=== PATIENT | male | born 1945 | race American Indian/Alaskan Native ===

== ENCOUNTER 2018-08-09 22:35 | Emergency (ER) | payer MEDICARE ==
[2018-08-09] MEDS ORDERED: SODIUM BICARBONATE IV ONE (23:00)
[2018-08-09] MEDS ORDERED: ADRENALIN ONE (23:00)
[2018-08-09] MEDS ORDERED: CALCIUM CHLORIDE IV ONE (23:00)
[2018-08-09] MEDS ORDERED: NACL 0.9% 1000 ML 1,000 ML ONE (23:03)
[2018-08-09] MEDS ORDERED: NACL 0.9% 1000 ML 1,000 ML IV ONE (23:07)
[2018-08-09] MEDS ORDERED: CORDARONE IV ONE (23:09)
[2018-08-09 23:39] LABS: Hematocrit 37.2 % (35.5-45.6); Hemoglobin 12.4 gm/dl (11.8-15.2); Mean Corpuscular HGB Conc 33 % (32-34); Mean Corpuscular Hemoglobin 31 pg (28-32); Mean Corpuscular Volume 93 fl (84-94); Platelet Count 173 K/mm3 (140-440); Red Cell Distribution Width 14.7 % (13.2-15.2)
[2018-08-09] MEDS ORDERED: CORDARONE 900 MG in D5W 482 ML IV SCH (23:45)
[2018-08-09 23:50] LABS: INR 1.75 (0.87-1.13); Partial Thromboplastin Time 32.5 Sec. (24.2-36.6)
[2018-08-09 23:58] LABS: Albumin 2.8 g/dL (3.9-5); BUN/Creatinine Ratio 21; Blood Urea Nitrogen 32 mg/dL (9-20); Creatine Kinase MB 6.4 ng/mL (0.0-4.0); Hemolysis Index 92
[2018-08-10 00:06] LABS: Calcium > 13.0 mg/dL (8.4-10.2)
[2018-08-10 00:10] LABS: Alanine Aminotransferase 159 units/L (7-56)
[2018-08-10] MEDS ORDERED: D50W (25GM) Syringe IV ONE ×4 (00:10→02:08)
[2018-08-10] MEDS ORDERED: PROVENTIL IH ONE (00:11)
[2018-08-10] MEDS ORDERED: LEVOPHED DRIP 4 MG/NS 250 ML 4 MG/250 ML BAG IV ONE (00:16)
[2018-08-10] MEDS ORDERED: NACL 0.9% 1000 ML 1,000 ML IV ONE ×2 (00:21→02:08)
[2018-08-10] MEDS ORDERED: LEVOPHED DRIP 4 MG/NS 250 ML 4 MG/250 ML BAG IV SCH (00:30)
--- NOTE | 2018-08-10 00:41 | XRay Report ---
FINAL REPORT EXAM: XR CHEST 1V AP HISTORY: post intubation, post arrest TECHNIQUE: A portable view of the chest was submitted. FINDINGS: There is approximately a 10 percent right-sided pneumothorax. The lungs otherwise do not show infiltrates or effusions. The heart size is normal. There is a right-sided subclavian venous line with the tip in good position in the mid superior vena cava. The ET tube is 3 cm above the chelsey. The tip of the NG tube is in the upper stomach just below the GE junction. It needs to be advanced 10 cm for optimal positioning. Heart size is normal. The skeletal structures otherwise do not show any acute changes. IMPRESSION: 10 percent right-sided pneumothorax. Satisfactory position of the ET tube and subclavian venous line. The NG tube needs to be advanced 10 cm further into the stomach. No localized infiltrates or congestion.
[2018-08-10] MEDS ORDERED: SODIUM BICARBONATE IV ONE (00:45)
[2018-08-10 00:54] LABS: Band Neutrophils # (Manual) 1.5 K/mm3; Basophils % (Manual) 0 % (0.0-1.8); Eosinophils % (Manual) 0 % (0.0-4.3); Myelocytes # (Manual) 0.2 K/mm3; Total Cells Counted 100
[2018-08-10 00:55] LABS: Anisocytosis 1+; Platelet Estimate Consistent w Auto
[2018-08-10] MEDS ORDERED: SODIUM BICARBONATE 50 MEQ in NACL 0.9% 1000 ML 1,000 ML IV SCH (01:00)
[2018-08-10 01:46] LABS: Alanine Aminotransferase 318 units/L (7-56); Albumin 1.5 g/dL (3.9-5); BUN/Creatinine Ratio 22; Blood Urea Nitrogen 28 mg/dL (9-20); Calcium 9.5 mg/dL (8.4-10.2); Hemolysis Index 33
[2018-08-10] MEDS ORDERED: Vasostrict 20 UNIT in NACL 0.9% 100 ML IV SCH (02:00)
[2018-08-10] MEDS ORDERED: CALCIUM CHLORIDE IVP ONE (02:07)
[2018-08-10] MEDS ORDERED: HumuLIN R IV ONE (02:08)
[2018-08-10] MEDS ORDERED: CALCIUM CHLORIDE 1,000 MG in NACL 0.9% 100 ML IV ONE (02:15)
--- NOTE | 2018-08-10 02:19 | Emergency Department Report ---
ED CPR HPI - General Chief Complaint: Cardiac Arrest/CPR Stated Complaint: CARDIAC ARREST Time Seen by Provider: 08/09/18 23:04 Source: EMS Mode of arrival: Stretcher Limitations: Altered Mental Status - History of Present Illness Initial Comments: 72-year-old male with a past medical history CAD with stent CHF, hypertension and recent diagnosis of stomach cancer about the 5 days ago since the hospital cardiac arrest. Family states that patient stop responding and passed out. They initiated chest compressions. Upon EMS arrival patient was gesturing to stop chest compressions and was in a sinus rhythm. Shortly after their arrival patient's rhythm deteriorated to PEA. Patient was intubated and received epinephrine and route to the hospital and presents in PEA cardiac arrest. - Related Data Allergies Allergy/AdvReac Type Severity Reaction Status Date / Time No Known Allergies Allergy Verified 08/09/18 23:08 ED Review of Systems ROS: Stated complaint: CARDIAC ARREST Other details as noted in HPI Comment: Unobtainable due to pts medical conditions ED Past Medical Hx - Past Medical History Previous Medical History?: Yes Hx Hypertension: Yes Hx of Cancer: Yes (recent stomach cancer diagnosed) - Social History Smoking Status: Unknown if ever smoked ED Physical Exam - General Limitations: Other - Other Other exam information: General: Unresponsive Head exam: Atraumatic Eyes exam: Pupils fixed and dilated ENT: Orally intubated Neck exam: Normal inspection Respiratory exam:No spontaneous respirations, equal bilateral breath sounds with bagging. No breath sounds over the epigastrium Cardiovascular: Pulseless initially Abdomen: Firm/tense abdomen Rectal: Black stool guaiac positive Extremity: No spontaneous movement Back: Normal Inspection Neurologic: GCS equals 3 Skin: Warm, dry, intact ED Course Vital Signs 08/09/18 23:20 Pulse Rate 93 H O2 Sat by Pulse 97 Oximetry - Consultations Consultation #1: 08/09/18 23:03 Case discussed with on-call ice cream freezer DR Perez. EKG reviewed. Not a candidate for cardiac catheterization technologist. Questionable anticoagulate candidate heparin depending on H&H given guaiac positive stools. Recommended amiodarone bolus with drip. - Central Line Placement Right IJ Consent Obtained: emergent situation Time Out Performed: Yes Patient Placed on Monitor/Pulse Ox: Yes MD Prep: mask, gown, gloves Local Anesthesia Used: Lidocaine 1% Amount of Anesthesia Used (mls): 3 Ultrasound Used for Placement: Yes Central Line Lumen Inserted: triple Bloods Obtained for Lab: Yes Central Line Position: good blood return, sutured in place with nyl Post Procedure X-Ray: pneumothorax seen Patient Tolerated Procedure: other Complications: pneumothorax - Chest Tube Chest Tube Location: anterior axillary line Size of Korean Tube (cm): 10 (10.2 welsh) Chest Tube Procedure: betadine prep, sterile drapes applied Velázquez of Air [place]: Yes Number of Attempts: 1 Time of Successful Intubation: 01:30 Tube Sutured to Skin: Yes Post Procedure CXR?: Yes (good position, resolution of pneumothorax) Progress: Resolution of pneumothorax ED Medical Decision Making - Lab Data Result diagrams: 08/09/18 23:30 08/10/18 02:18 Lab Results 08/09/18 08/09/18 08/09/18 Range/Units 23:30 23:30 23:30 WBC 9.5 (4.5-11.0) K/mm3 RBC 4.00 (3.65-5.03) M/mm3 Hgb 12.4 (11.8-15.2) gm/dl Hct 37.2 (35.5-45.6) % MCV 93 (84-94) fl MCH 31 (28-32) pg MCHC 33 (32-34) % RDW 14.7 (13.2-15.2) % Plt Count 173 (140-440) K/mm3 Add Manual Diff Complete Total Counted 100 Seg Neuts % (Manual) 51.0 (40.0-70.0) % Band Neutrophils % 16.0 % Lymphocytes % (Manual) 25.0 (13.4-35.0) % Reactive Lymphs % (Man) 0 % Monocytes % (Manual) 6.0 (0.0-7.3) % Eosinophils % (Manual) 0 (0.0-4.3) % Basophils % (Manual) 0 (0.0-1.8) % Metamyelocytes % 0 % Myelocytes % 2.0 % Promyelocytes % 0 % Blast Cells % 0 % Nucleated RBC % Not Reportable Seg Neutrophils # Man 4.8 (1.8-7.7) K/mm3 Band Neutrophils # 1.5 K/mm3 Lymphocytes # (Manual) 2.4 (1.2-5.4) K/mm3 Abs React Lymphs (Man) 0.0 K/mm3 Monocytes # (Manual) 0.6 (0.0-0.8) K/mm3 Eosinophils # (Manual) 0.0 (0.0-0.4) K/mm3 Basophils # (Manual) 0.0 (0.0-0.1) K/mm3 Metamyelocytes # 0.0 K/mm3 Myelocytes # 0.2 K/mm3 Promyelocytes # 0.0 K/mm3 Blast Cells # 0.0 K/mm3 WBC Morphology Not Reportable Hypersegmented Neuts Not Reportable Hyposegmented Neuts Not Reportable Hypogranular Neuts Not Reportable Smudge Cells Not Reportable Toxic Granulation Not Reportable Toxic Vacuolation Not Reportable Dohle Bodies Not Reportable Pelger-Huet Anomaly Not Reportable Brandon Rods Not Reportable Platelet Estimate Consistent w auto Clumped Platelets Not Reportable Plt Clumps, EDTA Not Reportable Large Platelets Not Reportable Giant Platelets Not Reportable Platelet Satelliting Not Reportable Plt Morphology Comment Not Reportable RBC Morphology Not Reportable Dimorphic RBCs Not Reportable Polychromasia Not Reportable Hypochromasia Not Reportable Poikilocytosis Not Reportable Anisocytosis 1+ Microcytosis Not Reportable Macrocytosis Not Reportable Spherocytes Not Reportable Pappenheimer Bodies Not Reportable Sickle Cells Not Reportable Target Cells Not Reportable Tear Drop Cells Not Reportable Ovalocytes Not Reportable Helmet Cells Not Reportable Duarte-Soldotna Bodies Not Reportable [place] Rings Not Reportable Ripley Cells Not Reportable Bite Cells Not Reportable Crenated Cell Not Reportable Elliptocytes Not Reportable Acanthocytes (Spur) Not Reportable Rouleaux Not Reportable Hemoglobin C Crystals Not Reportable Schistocytes Not Reportable Malaria parasites Not Reportable Carlin Bodies Not Reportable Hem Pathologist Commnt No PT (12.2-14.9) Sec. INR (0.87-1.13) APTT (24.2-36.6) Sec. POC ABG pH (7.35-7.45) POC ABG pCO2 (35-45) POC ABG pO2 (80-105) POC ABG HCO3 POC ABG Total CO2 POC ABG O2 Sat POC ABG Base Excess FiO2 % Sodium 139 (137-145) mmol/L Potassium 6.4 H* (3.6-5.0) mmol/L Chloride 91.9 L (98-107) mmol/L Carbon Dioxide 14 L (22-30) mmol/L Anion Gap 39 mmol/L BUN 32 H (9-20) mg/dL Creatinine 1.5 (0.8-1.5) mg/dL Estimated GFR 56 ml/min BUN/Creatinine Ratio 21 % Glucose 34 L* (75-100) mg/dL POC Glucose (70-105) Lactic Acid 19.50 H* (0.7-2.0) mmol/L Calcium > 13.0 H* (8.4-10.2) mg/dL Total Bilirubin 1.30 H (0.1-1.2) mg/dL AST 230 H (5-40) units/L ALT 159 H (7-56) units/L Alkaline Phosphatase 120 (35-129) units/L Total Creatine Kinase 362 H (55-170) units/L CK-MB (CK-2) 6.4 H (0.0-4.0) ng/mL CK-MB (CK-2) Rel Index 1.7 (0-4) Troponin T 0.080 H (0.00-0.029) ng/mL Total Protein 5.3 L (6.3-8.2) g/dL Albumin 2.8 L (3.9-5) g/dL Albumin/Globulin Ratio 1.1 % Blood Type Antibody Screen 08/09/18 08/09/18 08/10/18 Range/Units 23:30 23:30 00:11 WBC (4.5-11.0) K/mm3 RBC (3.65-5.03) M/mm3 Hgb (11.8-15.2) gm/dl Hct (35.5-45.6) % MCV (84-94) fl MCH (28-32) pg MCHC (32-34) % RDW (13.2-15.2) % Plt Count (140-440) K/mm3 Add Manual Diff Total Counted Seg Neuts % (Manual) (40.0-70.0) % Band Neutrophils % % Lymphocytes % (Manual) (13.4-35.0) % Reactive Lymphs % (Man) % Monocytes % (Manual) (0.0-7.3) % Eosinophils % (Manual) (0.0-4.3) % Basophils % (Manual) (0.0-1.8) % Metamyelocytes % % Myelocytes % % Promyelocytes % % Blast Cells % % Nucleated RBC % Seg Neutrophils # Man (1.8-7.7) K/mm3 Band Neutrophils # K/mm3 Lymphocytes # (Manual) (1.2-5.4) K/mm3 Abs React Lymphs (Man) K/mm3 Monocytes # (Manual) (0.0-0.8) K/mm3 Eosinophils # (Manual) (0.0-0.4) K/mm3 Basophils # (Manual) (0.0-0.1) K/mm3 Metamyelocytes # K/mm3 Myelocytes # K/mm3 Promyelocytes # K/mm3 Blast Cells # K/mm3 WBC Morphology Hypersegmented Neuts Hyposegmented Neuts Hypogranular Neuts Smudge Cells Toxic Granulation Toxic Vacuolation Dohle Bodies Pelger-Huet Anomaly Brandon Rods Platelet Estimate Clumped Platelets Plt Clumps, EDTA Large Platelets Giant Platelets Platelet Satelliting Plt Morphology Comment RBC Morphology Dimorphic RBCs Polychromasia Hypochromasia Poikilocytosis Anisocytosis Microcytosis Macrocytosis Spherocytes Pappenheimer Bodies Sickle Cells Target Cells Tear Drop Cells Ovalocytes Helmet Cells Duarte-Soldot[place] Bodies [place] Rings Ripley Cells Bite Cells Crenated Cell Elliptocytes Acanthocytes (Spur) Rouleaux Hemoglobin C Crystals Schistocytes Malaria parasites Carlin Bodies Hem Pathologist Commnt PT 21.5 H (12.2-14.9) Sec. INR 1.75 H (0.87-1.13) APTT 32.5 (24.2-36.6) Sec. POC ABG pH (7.35-7.45) POC ABG pCO2 (35-45) POC ABG pO2 (80-105) POC ABG HCO3 POC ABG Total CO2 POC ABG O2 Sat POC ABG Base Excess FiO2 % Sodium (137-145) mmol/L Potassium (3.6-5.0) mmol/L Chloride (98-107) mmol/L Carbon Dioxide (22-30) mmol/L Anion Gap mmol/L BUN (9-20) mg/dL Creatinine (0.8-1.5) mg/dL Estimated GFR ml/min BUN/Creatinine Ratio % Glucose (75-100) mg/dL POC Glucose 40 L (70-105) Lactic Acid (0.7-2.0) mmol/L Calcium (8.4-10.2) mg/dL Total Bilirubin (0.1-1.2) mg/dL AST (5-40) units/L ALT (7-56) units/L Alkaline Phosphatase (35-129) units/L Total Creatine Kinase (55-170) units/L CK-MB (CK-2) (0.0-4.0) ng/mL CK-MB (CK-2) Rel Index (0-4) Troponin T (0.00-0.029) ng/mL Total Protein (6.3-8.2) g/dL Albumin (3.9-5) g/dL Albumin/Globulin Ratio % Blood Type O POSITIVE Antibody Screen Negative 08/10/18 08/10/18 08/10/18 Range/Units 00:36 00:36 01:19 WBC (4.5-11.0) K/mm3 RBC (3.65-5.03) M/mm3 Hgb (11.8-15.2) gm/dl Hct (35.5-45.6) % MCV (84-94) fl MCH (28-32) pg MCHC (32-34) % RDW (13.2-15.2) % Plt Count (140-440) K/mm3 Add Manual Diff Total Counted Seg Neuts % (Manual) (40.0-70.0) % Band Neutrophils % % Lymphocytes % (Manual) (13.4-35.0) % Reactive Lymphs % (Man) % Monocytes % (Manual) (0.0-7.3) % Eosinophils % (Manual) (0.0-4.3) % Basophils % (Manual) (0.0-1.8) % Metamyelocytes % % Myelocytes % % Promyelocytes % % Blast Cells % % Nucleated RBC % Seg Neutrophils # Man (1.8-7.7) K/mm3 Band Neutrophils # K/mm3 Lymphocytes # (Manual) (1.2-5.4) K/mm3 Abs React Lymphs (Man) K/mm3 Monocytes # (Manual) (0.0-0.8) K/mm3 Eosinophils # (Manual) (0.0-0.4) K/mm3 Basophils # (Manual) (0.0-0.1) K/mm3 Metamyelocytes # K/mm3 Myelocytes # K/mm3 Promyelocytes # K/mm3 Blast Cells # K/mm3 WBC Morphology Hypersegmented Neuts Hyposegmented Neuts Hypogranular Neuts Smudge Cells Toxic Granulation Toxic Vacuolation Dohle Bodies Pelger-Huet Anomaly Brandon Rods Platelet Estimate Clumped Platelets Plt Clumps, EDTA Large Platelets Giant Platelets Platelet Satelliting Plt Morphology Comment RBC Morphology Dimorphic RBCs Polychromasia Hypochromasia Poikilocytosis Anisocytosis Microcytosis Macrocytosis Spherocytes Pappenheimer Bodies Sickle Cells Target Cells Tear Drop Cells Ovalocytes Helmet Cells Duarte-Soldot[place] Bodies [place] Rings Delisa Cells Bite Cells Crenated Cell Elliptocytes Acanthocytes (Spur) Rouleaux Hemoglobin C Crystals Schistocytes Malaria parasites Carlin Bodies Hem Pathologist Commnt PT (12.2-14.9) Sec. INR (0.87-1.13) APTT (24.2-36.6) Sec. POC ABG pH 7.316 L (7.35-7.45) POC ABG pCO2 31.6 L (35-45) POC ABG pO2 45 L (80-105) POC ABG HCO3 16.1 POC ABG Total CO2 17 POC ABG O2 Sat 77 POC ABG Base Excess -10 FiO2 100 % Sodium 138 (137-145) mmol/L Potassium 6.5 H* (3.6-5.0) mmol/L Chloride 94.5 L (98-107) mmol/L Carbon Dioxide 15 L (22-30) mmol/L Anion Gap 35 mmol/L BUN 28 H (9-20) mg/dL Creatinine 1.3 (0.8-1.5) mg/dL Estimated GFR > 60 ml/min BUN/Creatinine Ratio 22 % Glucose 817 H* (75-100) mg/dL POC Glucose (70-105) Lactic Acid 20.90 H* (0.7-2.0) mmol/L Calcium 9.5 D (8.4-10.2) mg/dL Total Bilirubin 0.70 (0.1-1.2) mg/dL AST 466 H (5-40) units/L ALT 318 H (7-56) units/L Alkaline Phosphatase 91 (35-129) units/L Total Creatine Kinase (55-170) units/L CK-MB (CK-2) (0.0-4.0) ng/mL CK-MB (CK-2) Rel Index (0-4) Troponin T (0.00-0.029) ng/mL Total Protein 2.7 L D (6.3-8.2) g/dL Albumin 1.5 L (3.9-5) g/dL Albumin/Globulin Ratio 1.3 % Blood Type Antibody Screen 08/10/18 08/10/18 08/10/18 Range/Units 01:51 01:57 02:13 WBC (4.5-11.0) K/mm3 RBC (3.65-5.03) M/mm3 Hgb (11.8-15.2) gm/dl Hct (35.5-45.6) % MCV (84-94) fl MCH (28-32) pg MCHC (32-34) % RDW (13.2-15.2) % Plt Count (140-440) K/mm3 Add Manual Diff Total Counted Seg Neuts % (Manual) (40.0-70.0) % Band Neutrophils % % Lymphocytes % (Manual) (13.4-35.0) % Reactive Lymphs % (Man) % Monocytes % (Manual) (0.0-7.3) % Eosinophils % (Manual) (0.0-4.3) % Basophils % (Manual) (0.0-1.8) % Metamyelocytes % % Myelocytes % % Promyelocytes % % Blast Cells % % Nucleated RBC % Seg Neutrophils # Man (1.8-7.7) K/mm3 Band Neutrophils # K/mm3 Lymphocytes # (Manual) (1.2-5.4) K/mm3 Abs React Lymphs (Man) K/mm3 Monocytes # (Manual) (0.0-0.8) K/mm3 Eosinophils # (Manual) (0.0-0.4) K/mm3 Basophils # (Manual) (0.0-0.1) K/mm3 Metamyelocytes # K/mm3 Myelocytes # K/mm3 Promyelocytes # K/mm3 Blast Cells # K/mm3 WBC Morphology Hypersegmented Neuts Hyposegmented Neuts Hypogranular Neuts Smudge Cells Toxic Granulation Toxic Vacuolation Dohle Bodies Pelger-Huet Anomaly Brandon Rods Platelet Estimate Clumped Platelets Plt Clumps, EDTA Large Platelets Giant Platelets Platelet Satelliting Plt Morphology Comment RBC Morphology Dimorphic RBCs Polychromasia Hypochromasia Poikilocytosis Anisocytosis Microcytosis Macrocytosis Spherocytes Pappenheimer Bodies Sickle Cells Target Cells Tear Drop Cells Ovalocytes Helmet Cells Duarte-Sold[place] Bodies [place] Rings Ripley Cells Bite Cells Crenated Cell Elliptocytes Acanthocytes (Spur) Rouleaux Hemoglobin C Crystals Schistocytes Malaria parasites Carlin Bodies Hem Pathologist Commnt PT (12.2-14.9) Sec. INR (0.87-1.13) APTT (24.2-36.6) Sec. POC ABG pH (7.35-7.45) POC ABG pCO2 (35-45) POC ABG pO2 (80-105) POC ABG HCO3 POC ABG Total CO2 POC ABG O2 Sat POC ABG Base Excess FiO2 % Sodium (137-145) mmol/L Potassium (3.6-5.0) mmol/L Chloride (98-107) mmol/L Carbon Dioxide (22-30) mmol/L Anion Gap mmol/L BUN (9-20) mg/dL Creatinine (0.8-1.5) mg/dL Estimated GFR ml/min BUN/Creatinine Ratio % Glucose (75-100) mg/dL POC Glucose 352 H 341 H (70-105) Lactic Acid 19.90 H* (0.7-2.0) mmol/L Calcium (8.4-10.2) mg/dL Total Bilirubin (0.1-1.2) mg/dL AST (5-40) units/L ALT (7-56) units/L Alkaline Phosphatase (35-129) units/L Total Creatine Kinase (55-170) units/L CK-MB (CK-2) (0.0-4.0) ng/mL CK-MB (CK-2) Rel Index (0-4) Troponin T (0.00-0.029) ng/mL Total Protein (6.3-8.2) g/dL Albumin (3.9-5) g/dL Albumin/Globulin Ratio % Blood Type Antibody Screen 08/10/18 Range/Units 02:18 WBC (4.5-11.0) K/mm3 RBC (3.65-5.03) M/mm3 Hgb (11.8-15.2) gm/dl Hct (35.5-45.6) % MCV (84-94) fl MCH (28-32) pg MCHC (32-34) % RDW (13.2-15.2) % Plt Count (140-440) K/mm3 Add Manual Diff Total Counted Seg Neuts % (Manual) (40.0-70.0) % Band Neutrophils % % Lymphocytes % (Manual) (13.4-35.0) % Reactive Lymphs % (Man) % Monocytes % (Manual) (0.0-7.3) % Eosinophils % (Manual) (0.0-4.3) % Basophils % (Manual) (0.0-1.8) % Metamyelocytes % % Myelocytes % % Promyelocytes % % Blast Cells % % Nucleated RBC % Seg Neutrophils # Man (1.8-7.7) K/mm3 Band Neutrophils # K/mm3 Lymphocytes # (Manual) (1.2-5.4) K/mm3 Abs React Lymphs (Man) K/mm3 Monocytes # (Manual) (0.0-0.8) K/mm3 Eosinophils # (Manual) (0.0-0.4) K/mm3 Basophils # (Manual) (0.0-0.1) K/mm3 Metamyelocytes # K/mm3 Myelocytes # K/mm3 Promyelocytes # K/mm3 Blast Cells # K/mm3 WBC Morphology Hypersegmented Neuts Hyposegmented Neuts Hypogranular Neuts Smudge Cells Toxic Granulation Toxic Vacuolation Dohle Bodies Pelger-Huet Anomaly Brandon Rods Platelet Estimate Clumped Platelets Plt Clumps, EDTA Large Platelets Giant Platelets Platelet Satelliting Plt Morphology Comment RBC Morphology Dimorphic RBCs Polychromasia Hypochromasia Poikilocytosis Anisocytosis Microcytosis Macrocytosis Spherocytes Pappenheimer Bodies Sickle Cells Target Cells Tear Drop Cells Ovalocytes Helmet Cells Duarte-Sold[place] Bodies [place] Rings Ripley Cells Bite Cells Crenated Cell Elliptocytes Acanthocytes (Spur) Rouleaux Hemoglobin C Crystals Schistocytes Malaria parasites Carlin Bodies Hem Pathologist Commnt PT (12.2-14.9) Sec. INR (0.87-1.13) APTT (24.2-36.6) Sec. POC ABG pH (7.35-7.45) POC ABG pCO2 (35-45) POC ABG pO2 (80-105) POC ABG HCO3 POC ABG Total CO2 POC ABG O2 Sat POC ABG Base Excess FiO2 % Sodium (137-145) mmol/L Potassium (3.6-5.0) mmol/L Chloride (98-107) mmol/L Carbon Dioxide (22-30) mmol/L Anion Gap mmol/L BUN (9-20) mg/dL Creatinine (0.8-1.5) mg/dL Estimated GFR ml/min BUN/Creatinine Ratio % Glucose 436 H (75-100) mg/dL POC Glucose (70-105) Lactic Acid (0.7-2.0) mmol/L Calcium (8.4-10.2) mg/dL Total Bilirubin (0.1-1.2) mg/dL AST (5-40) units/L ALT (7-56) units/L Alkaline Phosphatase (35-129) units/L Total Creatine Kinase (55-170) units/L CK-MB (CK-2) (0.0-4.0) ng/mL CK-MB (CK-2) Rel Index (0-4) Troponin T (0.00-0.029) ng/mL Total Protein (6.3-8.2) g/dL Albumin (3.9-5) g/dL Albumin/Globulin Ratio % Blood Type Antibody Screen - EKG Data -: EKG Interpreted by Sd EKG shows normal: sinus rhythm, axis (qrs 93), QRS complexes (qrsd 215), ST-T waves (nonspecific intraventricular conduction delay) Rate: tachycardia (106) - EKG Data When compared to previous EKG there are: previous EKG unavailable - Radiology Data Radiology results: report reviewed Chest x-ray: 10% right-sided pneumothorax, satisfactory ET tube position. NG tube needs to be advanced 10 cm into the stomach. No infiltrates or congestion Chest x-ray: Right-sided chest tube good position. No residual pneumothorax. No infiltrate or congestion. NG tube needs to be advanced at least 10 cm Abdominal x-ray: Denies gaseous distention of all the bowels without mass effect. Diagnostic considerations would be a generalized ileus versus OLglivie syndrome. No evidence of pneumoperitoneum - Medical Decision Making Initial presentation with PEA patient received sodium bicarbonate and several rounds of epinephrine. Patient had 2 episodes of V. tach and was shocked accordingly. After second V. tach episode and defibrillation patient had return of spontaneous circulation. Central line was placed. Patient had another episode of cardiac arrest with return of spontaneous circulation after epinephrine. Blood pressure remained low at this arrest. Patient did receive the amiodarone bolus and drip was canceled secondary to persistent hypotension and bradycardia. Dr. Perez ice cream freezer was informed. Levophed was ordered. Lemos was attempted by RN but states that she was able to pass tube due to obstruction. Bleeding noted from penis after attempts. Pulse intubation x-ray revealed ET tube in good position, NG tube is not in the stomach (the nurse attempted to events multiple times but unchanged on repeat x-ray), and a small right-sided pneumothorax. Right-sided chest tube was placed without incident. Patient had a third arrest (PEA) with return of spontaneous circulation. At this time he was maxed out on Levophed and vasopressin was added. On vasopressin blood pressure seemed to be responding but once again patient arrested. Patient remained in a bradycardic PEA despite resuscitation. Family at the bedside and informed further attempts likely futile. During ED stay initial glucose was in the 100s but came back in the 30s in the lab. Patient received several amps of D50. Glucose in the lab showed a glucose in the 800s but was only in the 300s on bedside Accu-Chek. Hyperkalemia noted. Patient was treated with additional sodium bicarbonate and albuterol 10 mg. Initially insulin wasn't given secondary to hypoglycemia. Once labs revealed glucose increase insulin was ordered. Initially calcium was not given due to hypercalcemia all labs. Once Repeat values showed a normal calcium, calcium was ordered. I also noticed that chest x-ray seems to have distended loops of bowel in the abdomen. CT head and CT abdomen and pelvis, were pending prior to patient's . Patient was too unstable for transfer to the CAT scanner. Case was discussed with hospitalist at 02:27 who initiated orders however, patient arrested again with persistant lori (rate 20) pea rhythm and time of : 02:54 - Differential Diagnosis RI, PE, intracranial hemorrhage, CVA, obstruction, cancer, arrhythmia Critical Care Time: Yes Critical care time in (mins) excluding proc time.: 95 Critical care attestation.: If time is entered above; I have spent that time in minutes in the direct care of this critically ill patient, excluding procedure time. ED Disposition Clinical Impression: Cardiac arrest, Hypotension, Hyperkalemia, Lactic acidosis, Acute pneumothorax , History of stomach cancer, Hypoglycemia, Elevated LFTs Disposition: DC-20 Is pt being admited?: Yes Condition: Serious Time of Disposition: 02:54 (Dr Cabello/hosp)
--- NOTE | 2018-08-10 02:23 | XRay Report ---
FINAL REPORT EXAM: XR CHEST 1V AP HISTORY: s/p chest tube TECHNIQUE: A portable view of the chest was obtained and compared to the earlier study of the same day. FINDINGS: There is been interval placement of a small bore right-sided chest tube. There is no residual pneumothorax. The lungs otherwise are clear. The heart size is normal. The ET tube and central venous line appear in good position. The tip of the NG tube is at the GE junction. Once again it needs to be advanced at least 10 cm for optimal positioning. In the upper abdomen there are multiple distended bowel loops. The heart size is normal. The skeletal structures otherwise are unremarkable. IMPRESSION: Status post chest tube placement as described. No residual right-sided pneumothorax. No acute infiltrates or congestion. The NG tube needs to be advanced at least 10 cm for optimal positioning in the stomach.
[2018-08-10] MEDS ORDERED: D50W (25GM) Syringe IV PRN (02:43)
[2018-08-10] MEDS ORDERED: HumuLIN R SUB-Q SCH (03:00)
--- NOTE | 2018-08-10 03:06 | XRay Report ---
FINAL REPORT EXAM: XR ABDOMEN 1V AP HISTORY: abd distention TECHNIQUE: A portable supine view of the abdomen and pelvis was obtained. FINDINGS: There is diffuse gas distention of the large bowel and small bowel loops. Free air is not seen. There is no evidence of mass effect. The lung bases are clear. The skeletal structures do not show any acute changes. IMPRESSION: Generalized gaseous distention of all the bowel loops without mass effect. Diagnostic considerations would include a generalized ileus versus [place] syndrome. No evidence of pneumoperitoneum.
[2018-08-10 04:54] VITALS: BP 74/21
--- NOTE | 2018-08-10 07:15 | History and Physical Report ---
CHIEF COMPLAINT: Unresponsiveness. HISTORY OF PRESENT ILLNESS: The patient is a 72-year-old male who was noted by family to have stopped responding appropriately and passed out. The family initiated chest compression and called EMS. When EMS arrived, the patient was noted to be indicating to stop chest compression and he was found to be in sinus rhythm and shortly after EMS arrival, the patient deteriorated again and went into pulseless electrical activity and was intubated and given a dose of epinephrine en route to the hospital and arrived in the hospital, still in pulseless electrical activity and cardiopulmonary resuscitation was continued. Eventually, patient's vital signs were restored with pulse and blood pressure. The patient was started on vasopressin to maintain the blood pressure as well as IV fluid. PAST MEDICAL HISTORY: Pertinent for hypertension, recently diagnosed stomach cancer. PAST SURGICAL HISTORY: Unremarkable. FAMILY HISTORY: Noncontributory. SOCIAL HISTORY: It is not known whether the patient smoked cigarette. There is no social history of alcohol ingestion or illicit drug use. MEDICATIONS: The patient's home medications are not known. ALLERGIES: There are no known drug allergies. REVIEW OF SYSTEMS: CONSTITUTIONAL: There is no fever, no chills, no diaphoresis. HEENT: There is no headache or sore throat. CARDIOVASCULAR SYSTEM: There is no chest pain or orthopnea. RESPIRATORY SYSTEM: There is no shortness of breath or cough. GASTROINTESTINAL SYSTEM: There is no nausea, no vomiting, no abdominal pain, diarrhea or constipation. NEUROLOGICAL SYSTEM: Unresponsiveness and change in mental status noted. MUSCULOSKELETAL SYSTEM: There is no joint pain or swelling. DERMATOLOGICAL SYSTEM: There is no skin rash or itching. GENITOURINARY SYSTEM: There is no dysuria, hematuria or flank pain. Rest of system review is normal. PHYSICAL EXAMINATION: GENERAL: At the time of exam, the patient was intubated and mechanically ventilated, not responding to any stimulus. VITAL SIGNS: Initially at the time of presentation shows a pulse of 93. HEENT: Show pupils to be sluggishly reactive to light. NECK: Supple with no JVD or carotid bruit. CARDIOVASCULAR SYSTEM: Show normal first and second heart sounds with no gallops or murmur. RESPIRATORY SYSTEM: Show good air entry on both sides of the lungs through the endotracheal tube and mechanical ventilation. GASTROINTESTINAL SYSTEM: Show abdomen to be full, soft, nontender, with no organomegaly or rigidity. NEUROLOGICAL: Shows no focal deficit. MUSCULOSKELETAL SYSTEM: Show no joint swelling or tenderness. DERMATOLOGICAL SYSTEM: Show no skin rash. GENITOURINARY SYSTEM: Showing no costovertebral angle tenderness. PERTINENT LABORATORY DATA AND IMAGING STUDIES: The patient had a chest x-ray done that shows a 10% right-sided pneumothorax and satisfactory position of the ET tube and subclavian venous line, with instruction to advance the nasogastric tube 10 cm into the stomach. No localizing features of congestion was found. The patient had abdominal x-ray done that shows no evidence of pneumoperitoneum. There was finding of generalized gaseous distention of all the bowel loops without masses and the radiologist say to consider ileus versus Neola's syndrome. LABORATORY IMAGING STUDIES: The patient has CBC done that was unremarkable. The patient's coagulation studies were remarkable. ABG showed pH of 7.31, with low pCO2 of 31 and low pO2 of 45, and this was done on FiO2 of 100. The patient's initial chemistry show a high potassium level of 6.4, with low CO2 of 14 and elevated BUN of 35, low blood glucose of 34, with elevated lactic acid of 19.5, and high calcium level of greater than 13 and elevated total bilirubin of 1.3, with elevated AST of 230 and elevated ALT of 159, and also elevated troponin of 0.08, and low albumin level of 2.8. DIAGNOSES: 1. Cardiac arrest. 2. Right-sided pneumothorax. 3. Lactic acidosis. 4. Hyperkalemia. PLAN OF ACTION: 1. The patient will be admitted to Intensive care unit and will have critical care consult with Dr. Holloway. 2. The patient will continue intravenous vasopressin for maintenance of blood pressure as ordered by the Emergency Room physician as well as norepinephrine and Levophed intravenous for maintenance of blood pressure. Deep venous thrombosis prophylaxis will be through heparin 5000 units subcutaneous every 12 hours. The patient will be on Accu-Chek every 4 hours and followed by low-dose sliding scale using regular insulin coverage. 3. The patient will have respiratory therapy to manage the ventilator and will be on intravenous Zofran 4 mg every 8 hours for nausea and vomiting. ADDENDUM: After the patient's admission was done, the patient coded again in the Emergency Room and , and did not make it out of the Emergency Room. JOB# [id number] OCN/NTS
[2018-08-10] MEDS ORDERED: HEPARIN SUB-Q SCH (10:00)
[2018-08-11 00:07] LABS: LDL Cholesterol,Direct 4 mg/dL (50-130)
[2018-08-11 00:40] LABS: Chol/HDL Ratio 2.66 %; HDL Cholesterol 21 mg/dL (40-59)
--- NOTE | 2018-08-20 13:06 | Discharge Summary ---
SUMMARY The patient on 08/10/2018. The patient is a 72-year-old male, who wasbrought to the Emergency Room and presented as a case of cardiac arrest. The patient had multiple cardiopulmonary resuscitations done in the Emergency Room. The cardiopulmonary resuscitations actually was started at his home when he collapsed and then he was brought to the Emergency Room with continuation of cardiopulmonary resuscitation and the patient eventually was pronounced by the Emergency Room physician Dr. Fanta Haney on 08/10/2018 at 2:54 a.m. CAUSE OF : Include; 1. Stomach cancer. 2. Hyperkalemia. 3. Lactic acidosis. 4. Right-sided pneumothorax. The family is aware of the patient's pronunciation. JOB# [id number] MATTHEWN/REAL MTDD
== END 2018-08-10 06:12 ==
LOC: ED 22:35
DX: I50.9 Heart failure, unspecified (principal)
CPT/HCPCS: 32551; 36415; 36556; 71045; 74018; 80053; 80061; 82140; 82271; 82550; 82553; 82803; 82947; 82962; 84484; 85007; 85025; 85610; 85730; 86850; 86900; 86901; 87205; 92950; 93005; 93010; 96365; 96375; 99291; 99292; J0171; J0282; J7030; J7060; 94002